=== PATIENT | female | born 1960 | race American Indian/Alaskan Native ===

== ENCOUNTER 2017-01-01 08:11 | Inpatient (IN) | payer OTHER ==
[2017-01-01] MEDS ORDERED: NACL BACTERIOSTATIC INFILTRATI ONE (09:01)
--- NOTE | 2017-01-01 09:05 | Anesthesia Consultation ---
Anesthesia Consult and Med Hx Date of service: 01/01/17 (Scheduled for Right breast bx w/ needle loc with Dr. Durant) - Airway Anesthetic Teeth Evaluation: Good ROM Head & Neck: Adequate Mental/Hyoid Distance: Adequate Mallampati Class: Class II Intubation Access Assessment: Probably Good - Pulmonary Exam CTA: Yes - Cardiac Exam Cardiac Exam: RRR - Pre-Operative Health Status ASA Pre-Surgery Classification: ASA3 Proposed Anesthetic Plan: General - Pre-Anesthesia Comment Pre-Anesthesia Comments: No previous anesthesia complicatons. NPO since midnight. Pt took Coreg and Amlodopine this am. Cardiac clearance on chart. - Pulmonary Hx Smoking: No Hx Asthma: Yes Hx Sleep Apnea: No - Cardiovascular System Hx Hypertension: Yes (FOR 6 YRS, DR. BLAYNE SHAW - PCP) Hx Coronary Artery Disease: No Hx Heart Attack/AMI: No - Central Nervous System Hx Seizures: Yes (LAST ONE 3 YRS AGO) CVA: No - Gastrointestinal Hx Gastroesophageal Reflux Disease: No - Endocrine Hx Renal Disease: No Hx End Stage Renal Disease: No Hx Non-Insulin Dependent Diabetes: Yes (off Metformin x 2 months) - Hematic Hx Anemia: Yes (30 YRS AGO AFTER CHILDBIRTH) - Other Systems Hx Cancer: No Hx Obesity: Yes (BMI= 34.9) - Additional Comments Anesthesia Medical History Comments: Cardiac clearance and medical clearance on chart. MPI 10/02/16- EF 62%, no ischemia or WMA. Echo 10/02/16: EF 60-655, nml valves
[2017-01-01] MEDS ORDERED: XYLOCAINE 1% 20 mL ONE (09:55)
[2017-01-01] MEDS ORDERED: NACL 0.9% 1000 ML 1,000 ML IV SCH (10:00)
[2017-01-01] MEDS ORDERED: PEPCID PO NR (10:00)
[2017-01-01] MEDS ORDERED: VERSED IV NR (10:00)
--- NOTE | 2017-01-01 10:56 | Procedure Note ---
Date of procedure: 01/01/17 Pre-op diagnosis: rt. breast lesion Post-op diagnosis: same Procedure: rt. breast needle loc. Findings: n/a Anesthesia: GETA, local Surgeon: DARRYN PEARCE Estimated blood loss: none Pathology: none Condition: stable (surgery)
[2017-01-01] MEDS ORDERED: DIPRIVAN 10 MG/ML IV ONE (10:57)
[2017-01-01] MEDS ORDERED: DILAUDID ONE (10:58)
[2017-01-01] MEDS ORDERED: VANCOMYCIN/NS 1 GM/250 ML 1 GM/250 ML BAG IV NR (11:00)
--- NOTE | 2017-01-01 11:26 | Mammography Report ---
Right breast needle localization: Mammographic grid technique was utilized. A grouping of microcalcifications identified in the superior breast. A medial approach was utilized. The skin was cleansed and 1% lidocaine injected for local anesthesia. A 5 cm Kruger needle was introduced from the medial side. Positioning was confirmed with myelography. A wire was then introduced with removal of the needle and additional mammographic confirmation of position. No complications encountered.
[2017-01-01] MEDS ORDERED: BREVIBLOC IV ONE (11:31)
[2017-01-01] MEDS ORDERED: ZOFRAN ONE (11:31)
[2017-01-01] MEDS ORDERED: DECADRON ONE (11:31)
[2017-01-01] MEDS ORDERED: VERSED ONE (11:33)
[2017-01-01] MEDS ORDERED: DILAUDID IV ONE (13:00)
--- NOTE | 2017-01-01 13:07 | Anesthesia Day of Surgery ---
Anesthesia Day of Surgery - Day of Surgery Patient Examined: Yes Patient H&P Reviewed: Yes Patient is NPO: Yes Beta Blockers: Yes
[2017-01-01] MEDS ORDERED: MARCAINE 0.25% INFILTRATI ONE (13:35)
[2017-01-01] MEDS ORDERED: WATER FOR IRRIG STERILE IR ONE (13:35)
[2017-01-01] MEDS ORDERED: XYLOCAINE 1% 20 mL INFILTRATI ONE (13:35)
--- NOTE | 2017-01-01 14:24 | Mammography Report ---
Operative specimen mammogram: A single tissue specimen is submitted that includes the localizing wire and the targeted microcalcifications.
--- NOTE | 2017-01-01 14:41 | Short Stay Summary ---
Short Stay Documentation Date of service: 01/01/17 - History H&P: obtained from office - Allergies and Medications Current Medications: Allergies Penicillins Allergy (Verified 08/16/13 22:14) Anaphylaxis Sulfa (Sulfonamide Antibiotics) Allergy (Verified 08/16/13 22:14) Rash Home Medications Medication Instructions Recorded Confirmed Last Taken Type Bupropion HCl [Wellbutrin XL] 450 mg PO QAM 12/27/16 01/01/17 01/01/17 06:45 History Carvedilol [Coreg] 6.25 mg PO BID 12/27/16 01/01/17 01/01/17 06:45 History Quetiapine Fumarate [SEROquel XR] 150 mg PO QHS 12/27/16 12/27/16 12/31/16 History Spironolactone [Aldactone] 100 mg PO QDAY 12/27/16 01/01/17 12/30/16 History Valacyclovir HCl [Valtrex] 1,000 mg PO QDAY PRN 12/27/16 01/01/17 1 Year Ago History amLODIPine [Norvasc] 10 mg PO DAILY 12/27/16 01/01/17 12/30/16 History lamoTRIgine [LaMICtal] 100 mg PO BID 12/27/16 12/27/16 12/31/16 History HYDROcodone/APAP 5-325 [Artemas 1 each PO Q6HR PRN #30 tablet 01/01/17 Unknown Rx 5/325] Active Medications Famotidine (Pepcid) 20 mg PO PREOP NR Stop: 01/01/17 23:59 Last Admin: 01/01/17 09:46 Dose: 20 mg Sodium Chloride (Nacl 0.9% 1000 Ml) 1,000 mls @ 75 mls/hr IV DIRECT SEAMUS Last Admin: 01/01/17 11:22 Dose: 75 mls/hr Vancomycin HCl (Vancomycin/Ns 1 Gm/250 Ml) 1 gm in 250 mls @ 167.007 mls/hr IV PREOP NR PRN Reason: Protocol Stop: 01/01/17 23:59 Last Admin: 01/01/17 11:25 Dose: 167.007 mls/hr Midazolam HCl (Versed) 2 mg IV PREOP NR Stop: 01/01/17 23:59 Last Admin: 01/01/17 11:23 Dose: 2 mg - Brief post op/procedure progress note Date of procedure: 01/01/17 Pre-op diagnosis: Right breast suspicious microcalcifications of the upper inner quadrant Post-op diagnosis: same Procedure: Right needle localization excisional biopsy of suspicious microcalcifications Anesthesia: GETA Findings: Wire and suspicious microcalcifications present within radiograph specimen Surgeon: PIPO SANCHES Estimated blood loss: minimal Pathology: list (right needle localization excisional biopsy) Specimen disposition: to lab Condition: stable - Disposition Condition at discharge: Good Disposition: DISCHARGED TO HOME OR SELFCARE Short Stay Discharge Plan Activity: other (no heavy lifting) Diet: low fat Wound: other (keep incision clean and dry and may shower in 24 hours; no baths, pools or lakes; do not rub or scrub incision) Follow up with: BLAYNE SHAW MD [Primary Care Provider] - 7 Days PIPO SANCHES MD [Staff Physician] - 7 Days Prescriptions: HYDROcodone/APAP 5-325 [Artemas 5/325] 1 each PO Q6HR PRN #30 tablet PRN Reason: Pain
--- NOTE | 2017-01-01 14:50 | Operative Report ---
Operative Report Operative Report: Date of procedure:January 01, 2017 Pre-operative diagnosis: Right breast suspicious microcalcifications of the upper inner quadrant Post-operative diagnosis: Same Procedure name(s): Right needle localization excisional biopsy Surgeon: Jaycee Durant MD Anesthesia: General Findings: Wire with suspicious microcalcifications present within radiograph specimen Drains: None Complications: None Disposition: PACU in good position Indications for operative procedure: This is a 56 year old lady with suspicious right breast microcalcifications of the upper inner breast not amenable to stereotactic breast biopsy. Recommendations are to proceed with needle localization excisional biopsy to rule out malignancy. Procedure in Detail: Radiology placed wire to localize the suspicious microcalcifications of concern for the upper inner right breast. Patient was taken to the operating room and was laid supine. Gen. anesthesia was administered. The right breast was prepped and draped in the normal sterile operative fashion. The wire was identified. A skin incision was made with a 15 blade knife with dissection taken down to the subcutaneous tissues. First began with raising of the superior flap with removal of the wire from the skin with dissection taken down posterior to the pectoralis muscle followed by raising of the medial flap, inferior flap and then the lateral flap. The specimen was then removed from the pectoralis muscle with the aid of the Bovie cautery. Wire was not encountered and specimen was marked. Radiograph specimen with wire and suspicious microcalcifications present. Hemostasis was then obtained with the Bovie cautery. The subcutaneous tissues were approximated and closed using interrupted 3-0 Vicryl and skin closed with running 4-0 Monocryl and skin affix. She tolerated surgery very well and was awakened from anesthesia without any complications and transferred to PACU in good condition.
--- NOTE | 2017-01-01 15:07 | Post Anesthesia Evaluation ---
- Post Anesthesia Evaluation Patient Participated: Yes Airway Patent: Yes Stable Respiratory Function: Yes Nausea/Vomiting: No Temp > 96.8F: Yes Pain Manageable: Yes Adequeate Hydration: Yes Anesthesia Complications: No Block Receding Appropriately: Not Applicable Patient on Ventilator: No
[2017-01-01] MEDS ORDERED: ZOFRAN IV PRN ×2 (15:08→19:08)
[2017-01-01] MEDS: DILAUDID IV PRN ×2 (15:20→15:55)
[2017-01-01] MEDS: MORPHINE IV PRN ×3 (16:10→19:54)
[2017-01-01] MEDS ORDERED: NORCO 5/325 PO PRN (17:11)
[2017-01-01] MEDS ORDERED: VERSED IV ONE (17:53)
--- NOTE | 2017-01-01 18:39 | Progress Note ---
Subjective Date of service: 01/01/17 Principal diagnosis: chest pain Interval history: Patient s/p right breast biopsy complaining of chest pain on left that is sharp , constant. Also having bilateral jaw pain. EKG obtained which showed NSR with nonspecific T wave abnormality. Cardiac enzymes, BMP, CBC also ordered and pending. Patient reports having chest pain for the last few months that comes and goes. She has seen [facility] and had a stress test in September 2016 which was negative. She reports that the shipping lead did not tell her why she was having chest pain. Chest pain today is similar to what she has been having. Discussed with Dr. Durant and she would like the patient to be admitted. Dr. Jaquez called to admit the patient. Objective - Constitutional Vitals: Vital Signs - 12hr 01/01/17 01/01/17 01/01/17 08:45 09:04 14:40 Temperature 98.2 F 98.2 F 97.1 F L Pulse Rate 69 64 63 Respiratory 18 18 20 Rate Blood Pressure 137/88 137/88 143/88 O2 Sat by Pulse 99 99 99 Oximetry 01/01/17 01/01/17 01/01/17 14:45 14:50 14:55 Temperature Pulse Rate 73 67 67 Respiratory 18 16 16 Rate Blood Pressure 156/97 148/84 153/73 O2 Sat by Pulse 100 100 100 Oximetry 01/01/17 01/01/17 01/01/17 15:00 15:15 15:20 Temperature Pulse Rate 59 L 60 Respiratory 16 16 16 Rate Blood Pressure 149/84 144/82 O2 Sat by Pulse 100 100 Oximetry 01/01/17 01/01/17 01/01/17 15:30 15:45 16:00 Temperature 98.4 F Pulse Rate 77 68 66 Respiratory 12 14 14 Rate Blood Pressure 141/89 147/83 149/89 O2 Sat by Pulse 99 99 99 Oximetry 01/01/17 01/01/17 01/01/17 16:10 16:30 16:40 Temperature Pulse Rate 67 Respiratory 14 14 16 Rate Blood Pressure 139/74 O2 Sat by Pulse 99 Oximetry 01/01/17 01/01/17 17:13 17:43 Temperature Pulse Rate Respiratory 16 16 Rate Blood Pressure O2 Sat by Pulse Oximetry
[2017-01-01 19:01] LABS: Basophils % (Auto) 0.3 % (0.0-1.8); Eosinophils % (Auto) 0.1 % (0.0-4.3); Hemoglobin 13.1 gm/dl (10.1-14.3); Mean Corpuscular HGB Conc 33 % (30-34); Mean Corpuscular Hemoglobin 30 pg (28-32); Mean Corpuscular Volume 90 fl (79-97); Platelet Count 236 K/mm3 (140-440); Red Blood Count 4.43 M/mm3 (3.65-5.03); Red Cell Distribution Width 14.6 % (13.2-15.2); White Blood Count 7.8 K/mm3 (4.5-11.0)
[2017-01-01 19:02] LABS: Creatine Kinase 118 units/L (30-135)
[2017-01-01 19:04] LABS: Creatine Kinase MB < 1.0 ng/mL (0.0-4.0)
[2017-01-01 19:08] LABS: Anion Gap 20 mmol/L; Blood Urea Nitrogen 10 mg/dL (7-17); Calcium 8.8 mg/dL (8.4-10.2); Carbon Dioxide 25 mmol/L (22-30); Chloride 104.1 mmol/L (98-107); Glucose 128 mg/dL (65-100); Potassium 4.6 mmol/L (3.6-5.0); Sodium 144 mmol/L (137-145)
[2017-01-01] MEDS ORDERED: TYLENOL PO PRN (19:08)
[2017-01-01] MEDS ORDERED: DILAUDID IV PRN (19:08)
[2017-01-01] MEDS ORDERED: MILK OF MAGNESIA PO PRN (19:08)
[2017-01-01] MEDS ORDERED: DULCOLAX PR PRN (19:08)
[2017-01-01] MEDS ORDERED: SODIUM CHLORIDE FLUSH SYRINGE 10 ML IV PRN (19:11)
[2017-01-01] MEDS ORDERED: D5NS 1,000 ML IV SCH (20:00)
[2017-01-01 23:11] LABS: Basophils % (Auto) 0.2 % (0.0-1.8); Hematocrit 39.7 % (30.3-42.9); Hemoglobin 12.5 gm/dl (10.1-14.3); Mean Corpuscular HGB Conc 32 % (30-34); Mean Corpuscular Hemoglobin 29 pg (28-32); Mean Corpuscular Volume 92 fl (79-97); Platelet Count 253 K/mm3 (140-440); Red Blood Count 4.32 M/mm3 (3.65-5.03); Red Cell Distribution Width 14.6 % (13.2-15.2); White Blood Count 9.1 K/mm3 (4.5-11.0)
[2017-01-01 23:23] LABS: Creatine Kinase 122 units/L (30-135)
[2017-01-01 23:28] LABS: Creatine Kinase MB < 1.0 ng/mL (0.0-4.0)
[2017-01-02] MEDS: MORPHINE IV PRN (00:27)
--- NOTE | 2017-01-02 01:35 | Admit Criteria Form ---
Admission Criteria Documentation: AMBULATORY SURGERY EXCEPTION CRITERIA Ambulatory Surgery Exception Criteria ( Place 'X' for any and all applicable criteria): Surgery or procedure performed on ambulatory basis may require inpatient stay for[A] ANY ONE of the following(1)(2)(3)(4)(5)(6)(7)(8)(9): [X] I. A preoperative situation, condition, or finding that warrants inpatient stay as indicated by ANY ONE of the following: [] a) Inpatient care needed because of severity of a disease or condition rather than the surgery (eg, severe cardiac or respiratory disease, severe infection) (15) (16 ) (17) (18) [] b) Emergent procedure (eg, angioplasty for acute ischemia)(19) [] c) Complex surgical approach or situation as indicated by ANY ONE of the following(3): [] i) Open approach needed instead of usual endoscopic, transcatheter, or other less invasive procedure [] ii) Difficult approach because of previous operation [] iii) Airway monitoring required after open neck procedures(20)(21) [] iv) Large mass requiring unusually extensive dissection [] v) Additional complicating feature requiring inpatient care (eg, drain management)(22(23): [X] d) Major surgery in a pt with high anesthetic risk as indicated by ANY ONE of the following (2)(3)(5)(7)(8): [X] i) ASA risk class III or higher (severe systemic disease impairing function) [D] [] ii) Advanced age (eg, older than 85 years)(14)(24) [] iii) Symptomatic heart failure(25) [] iv) Symptomatic asthma or COPD(8)(21) [] v) Morbid obesity with hemodynamic or respiratory problems(20)( 21)(26)(27) [] vi) Obstructive sleep apnea(20)(21) [] vii) Former premature infants who are younger than 60 weeks [] viii) High risk for severe postoperative abnormalities (eg, severe postoperative hypocalcemia after parathyroidectomy for severe hyperparathyroidism)(27)( 28) [] ix) Unstable angina(25) [] e) Drug-related risk requiring inpatient stay as indicated by ANY ONE of the following(5)(10)(14)(32)(33) [] i) Procedure requires discontinuing drugs or other therapy (eg , antiarrhythmic medication, antiseizure medication), which necessitates inpatient observation or treatment.(18)(31) [] ii) Major surgery and high risk drug use as indicated by ANY ONE of the following: [] 1) Active abuse of cocaine or similar drug [] 2) Monoamine oxidase inhibitor use [] 3) Other drug identified as posing risk [] f) Inadequate outpatient care situation as indicated by ANY ONE of the following(5)(10)(14)(32)(33) [] i) Patient lives remote from medical facility and procedure has urgent complication potential, and temporary nearby residence cannot be arranged [] ii) Patient will have postprocedure incapacitation and inadequate assistance at home, or alternative level of care cannot be arranged. [] iii) Patient will have long general anesthesia or procedure side effect resolution time, and competent person to stay with patient on first postoperative night at home or alternative level of care cannot be arranged. []iv) Other inadequate outpatient situation that cannot be handled by other means [] II. A perioperative event, condition, or finding that warrants inpatient stay as indicated by ANY ONE of the following (1)(2)(3): [] a) Inadequate physiologic recovery: cardiovascular, respiratory, or hemodynamic status not normal or near preoperative baseline(18) [] b) Hemodynamic instability [] c) Patient not alert with near normal or baseline mental status [] d) Temperature not normal or as expected and not appropriate for outpatient treatment of condition [] e) Ambulatory or appropriate activity level status not yet achieved post procedure [E](34)(35)(36) [] f) Operative site not appropriate (eg, unexpected or excessive drainage or bleeding) [] g) Postoperative effects not resolved or adequately managed (eg, significant pain or vomiting not appropriate for outpatient or next level of care)(10)(12) [] h) Complicating features requiring inpatient care as indicated by ANY ONE of the following(37): [] i) Severe complications of procedure (eg, bowel injury, airway compromise, vascular injury,severe hemorrhage) [] ii) Extensive (eg, dissection far beyond usual scope of procedure ) or prolonged (eg, 120 minutes beyond usual) surgery needed requiring inpatient postoperative care [] iii) Conversion to an open or complex procedure that requires inpatient care (eg, open vs laparoscopic cholecystectomy, abdominal vs vaginal hysterectomy)(38) [] iv) Comorbid condition or test result identified during or post procedure that requires inpatient care (7) [] v) Malignant hyperthermia(30) [] vi) Other complicating feature requiring inpatient care(22)(23) Inpatient stay may be needed until ALL of the following are present (1)(2)(3)(4) (5)(6)(10)(14)(33)(40): []a) Physiologic recovery: cardiovascular, respiratory, and hemodynamic status normal or near preoperative baseline []b) Hemodynamic stability []c) Patient alert, with near normal or baseline mental status []d) Temperature appropriate: patient afebrile or temperature appropriate for outpt treatment of condition []e) Activity level appropriate: ambulatory or appropriate activity level post procedure []f) Operative site appropriate as indicated by ALL of the following: []i) Site dry or with expected drainage []ii) Any blood noted is as expected for procedure. []g) Postoperative effects resolved or managed as indicated by ALL of the following: []i) Pain management appropriate for outpatient (or next level of) care(10) []ii) Minimal nausea and vomiting: if present, successfully treated with oral medication(12) []iii) Headache, dizziness, or drowsiness (if present) are mild. []h) Voiding status acceptable as indicated by ANY ONE of the following: []i) Voiding spontaneously []ii) No voiding but instructions given for follow-up in 6 to 8 hours []iii) Urinary catheter in place, and instructions given for follow-up []i) Complicating features requiring inpatient care manageable at a lower level of care(37) []j) Comorbid conditions manageable at a lower level of care(37) The original [employer] content created by [employer] has been revised. The portions of the content which have been revised are identified through the use of italic text or in bold, and [employer] [employer] has neither reviewed nor approved the modified material. All other unmodified content is copyright [employer]. Please see references footnoted in the original [employer] edition 2016 Admission Criteria Met: Yes
[2017-01-02 06:14] LABS: Basophils % (Auto) 0.4 % (0.0-1.8); Hematocrit 36.5 % (30.3-42.9); Hemoglobin 11.8 gm/dl (10.1-14.3); Mean Corpuscular HGB Conc 32 % (30-34); Mean Corpuscular Hemoglobin 30 pg (28-32); Mean Corpuscular Volume 92 fl (79-97); Platelet Count 235 K/mm3 (140-440); Red Blood Count 3.96 M/mm3 (3.65-5.03); Red Cell Distribution Width 14.7 % (13.2-15.2); White Blood Count 11.9 K/mm3 (4.5-11.0)
[2017-01-02 06:39] LABS: Alanine Aminotransferase 20 units/L (7-56); Albumin 3.7 g/dL (3.9-5); Albumin/Globulin Ratio 1.3 %; Alkaline Phosphatase 63 units/L (35-129); Anion Gap 19 mmol/L; Bilirubin,Total 0.2 mg/dL (0.1-1.2); Blood Urea Nitrogen 8 mg/dL (7-17); Calcium 8.3 mg/dL (8.4-10.2); Carbon Dioxide 20 mmol/L (22-30); Chloride 104.5 mmol/L (98-107); Glucose 142 mg/dL (65-100); Potassium 3.9 mmol/L (3.6-5.0); Sodium 140 mmol/L (137-145); Total Protein 6.5 g/dL (6.3-8.2)
[2017-01-02 06:41] LABS: Creatine Kinase 116 units/L (30-135)
[2017-01-02 06:46] LABS: Creatine Kinase MB < 1.0 ng/mL (0.0-4.0)
--- NOTE | 2017-01-02 06:57 | Event Note ---
Date: 01/01/17 See H/p in reports Chest pain-post op HTN
--- NOTE | 2017-01-02 08:48 | Progress Note ---
Assessment and Plan This is a 56 year old lady with an abnormal right mammogram POD#1 for right needle localization excisional biopsy of suspicious microcalcifications not amenable to stereotactic biopsy. Patient admitted after surgery for chest pain. 2 sets of cardiac enzymes negative. 1. Patient with mild complaints of chest pain this morning, all cardiac work-up negative and patient had stress test in September with negative findings. 2. Right breast incision healing nicely and pt with f/u next . 3. Mgt by Dr. Jaquez and kimberly el. Subjective Date of service: 01/02/17 Principal diagnosis: chest pain Interval history: This is a 56 year old lady with an abnormal right mammogram POD#1 for right needle localization excisional biopsy of suspicious microcalcifications not amenable to stereotactic biopsy. Patient admitted after surgery for chest pain. 2 sets of cardiac enzymes negative. Objective - Constitutional Vitals: Vital Signs - 12hr 01/01/17 01/02/17 01/02/17 22:14 00:40 06:00 Temperature 97.7 F 98.1 F 98.0 F Pulse Rate [ 71 85 73 Left Radial] Respiratory 20 20 20 Rate Blood Pressure 120/74 124/68 118/69 [Left Arm] O2 Sat by Pulse 96 97 95 Oximetry General appearance: Present: no acute distress - EENT Eyes: PERRL, EOM intact ENT: hearing intact, clear oral mucosa, dentition normal Ears: bilateral: normal - Neck Neck: supple, normal ROM - Respiratory Respiratory effort: normal Respiratory: bilateral: CTA - Breasts Breasts: other (right breast incision healing nicely, no fluid collection) - Cardiovascular Rhythm: regular Heart Sounds: Present: gallop Extremities: no ischemia, pulses intact, pulses symmetrical, No edema, normal temperature, normal color - Gastrointestinal General gastrointestinal: Present: soft, non-tender, non-distended Rectal Exam: deferred - Genitourinary Female genitourinary: deferred - Integumentary Integumentary: clear, warm, dry - Musculoskeletal Musculoskeletal: strength equal bilaterally - Neurologic Neurologic: CNII-XII intact - Psychiatric Psychiatric: appropriate mood/affect, intact judgment & insight, memory intact, cooperative - Labs CBC & Chem 7: 01/02/17 05:56 01/02/17 05:56 Labs: Abnormal lab results 01/01/17 01/01/17 01/01/17 Range/Units 18:30 18:30 18:47 WBC (4.5-11.0) K/mm3 Seg Neutrophils % 79.0 H (40.0-70.0) % Seg Neutrophils # (1.8-7.7) K/mm3 Carbon Dioxide (22-30) mmol/L Glucose 128 H (65-100) mg/dL POC Glucose 124 H (70-105) Calcium (8.4-10.2) mg/dL Albumin (3.9-5) g/dL 01/01/17 01/02/17 01/02/17 Range/Units 22:45 05:56 05:56 WBC 11.9 H (4.5-11.0) K/mm3 Seg Neutrophils % 83.2 H 80.2 H (40.0-70.0) % Seg Neutrophils # 9.5 H (1.8-7.7) K/mm3 Carbon Dioxide 20 L (22-30) mmol/L Glucose 142 H (65-100) mg/dL POC Glucose (70-105) Calcium 8.3 L (8.4-10.2) mg/dL Albumin 3.7 L (3.9-5) g/dL
--- NOTE | 2017-01-02 09:49 | History and Physical Report ---
CHIEF COMPLAINT: Left-sided chest pain after the surgery. HISTORY OF PRESENT ILLNESS: A 56-year-old status post right breast biopsy of microcalcification in the right breast along with the ____ of radiology. Complains of left-sided chest pain after the surgery. The patient was impacted and continued to have chest pain. Hence, the patient is being admitted postop complication admission. The patient has been having chest pain off and on for the last few months, had a stress test in September 2016 which was negative. She had left-sided chest pain, dull and 6/10. No shortness of breath. No palpitations. No diaphoresis. The patient is being admitted for a 23-hour observation and repeat stress test from PACU. PAST MEDICAL HISTORY: Significant for hypertension, psychiatric disorder, and depression. PAST SURGICAL HISTORY: Right breast biopsy today. SOCIAL HISTORY: Does not smoke. No alcohol. No recreational drugs. CURRENT MEDICATIONS: Amlodipine 10 mg daily, Wellbutrin 450 mg in the morning, Coreg 6.25 b.i.d., Lamictal 100 mg twice a day, Seroquel 150 mg p.o. at bedtime, and spironolactone 100 mg p.o. daily. REVIEW OF SYSTEMS: Significant for left-sided chest pain. Otherwise, review of systems negative. A 14-point review of systems was done. PHYSICAL EXAMINATION: GENERAL: Middle-aged female, cooperative on examination. VITAL SIGNS: Temperature is 98.2, pulse is 68, respirations 15, chest sats are 99%, and blood pressure is 124/78. HEENT: Unremarkable. Pupils equal and reactive. NECK: Supple. No lymphadenopathy. No thyromegaly. LUNGS: Clear to auscultation and percussion. Good air entry. CARDIOVASCULAR: S1 and S2 heard. No gallop. No murmur. No rub. Apical impulse in the left fifth intercostal space and midclavicular line. ABDOMEN: Soft and benign. No hepatosplenomegaly. No guarding. No rigidity. Hernial orifices are normal. EXTREMITIES: Good pedal pulses. No pedal edema. DIAGNOSTIC DATA: EKG shows normal sinus rhythm. Heart rate of [address] minute[address] No acute ST-T wave changes. LABORATORY DATA: White count is 7800, hemoglobin 13.1, hematocrit is 40.0, and platelet count is 236,000. Electrolytes are normal. Glucose is slightly high 128. Troponin is 0.010, CK is 118, and CK-MB is less than 1.0. ASSESSMENT AND PLAN: 1. Chest pain, rule out myocardial infarction, chest pain protocol. Serial cardiac enzymes and Lexiscan ordered. 2. Hypertension. Continue antihypertensives in the form of Coreg 6.25 b.i.d., amlodipine 10 mg daily, and spironolactone 100 mg daily. 3. Depression. Continue Wellbutrin 450 mg p.o. daily. 4. Psychiatric disorder. Continue quetiapine 150 mg p.o. at bedtime, Lamictal 100 mg twice a day. 5. Deep venous thrombosis prophylaxis. Lovenox 40 mg subcutaneous daily. Status post right breast excisional biopsy. Dr. Durant to follow. JOB# [id number] MARNIE/TERESITA
[2017-01-02] MEDS ORDERED: ALDACTONE PO SCH ×2 (10:00)
[2017-01-02] MEDS ORDERED: NORVASC PO SCH (10:00)
[2017-01-02] MEDS ORDERED: WELLBUTRIN XL PO SCH (10:00)
[2017-01-02] MEDS ORDERED: BUPROPION HCL 450 MG PO SCH ×3 (10:00)
[2017-01-02] MEDS ORDERED: NON-FORMULARY (Spironolactone [Aldactone] 100 MG) PO SCH (10:00)
[2017-01-02] MEDS: COREG PO SCH ×2 (10:18→22:54)
[2017-01-02] MEDS: LaMICtal PO SCH ×2 (10:18→22:53)
--- NOTE | 2017-01-02 16:21 | Discharge Summary ---
Providers - Providers Date of Admission: 01/01/17 19:08 Date of discharge: 01/03/17 Attending physician: PIPO SANCHES 01/01/17 Consult to Cardiac Rehabilitation [CONS] Routine Reason For Exam: Phase I 01/01/17 19:08 Consult to Physician [CONS] Routine Consulting Provider: PIPO SANCHES Reason For Exam: Breast surgery Place consult to:: DR. SANCHES Notified:: ATTENDING Primary care physician: BLAYNE SHAW Hospitalization Condition: Good Hospital course: This is a 56 year old lady with an abnormal right mammogram for right needle localization excisional biopsy of suspicious microcalcifications not amenable to stereotactic biopsy. Patient admitted after surgery for chest pain. She has monitored with serial cardiac enzyme and 4 sets of cardiac enzymes were negative. She was ordered for a thallium stress test but she had a negative stress test back on September. A d-dimer level was ordered and results revealed normal value. Patient then started to complain of left upper extremity swelling and continued to have chest pain. She was further evaluated with left humerus x-ray which was unremarkable and the left upper extremity Doppler for possible upper extremity DVT but that was negative too. Her chest pain resolved this morning and she states that her left upper extremity swelling also resolved . She was evaluated by cardiology standpoint to her intervention recommended. She couldn't get the CT of the chest as proper vein was not detected during the test for contrast . Taste was counseled that her own as her chest pain resolved. Her chest pain most likely due to GERD, she was discharged home with a trial of PPI and she will follow up with her primary care physician in a week. Discharge diagnosis: 1. Chest pain, atypical Patient with mild complaints of chest pain this morning, all cardiac work-up negative and patient had stress test in September with negative findings. D-dimer is negative d/c home with PPI 2. Right breast incision healing nicely and pt to f/u next with PIPO Love. 3. Hypertension, benign essential continue on Coreg, amlodipine and aldectone 4. History of bipolar disorder continue home meds Disposition: DISCHARGED TO HOME OR SELFCARE Time spent for discharge: 32 minutes Core Measure Documentation - Palliative Care Palliative Care/ Comfort Measures: Not Applicable - Core Measures Any of the following diagnoses?: none Exam - Physical Exam Narrative exam: GENERAL: Obese -[place] female lying on bed appeared to be in no discomfort. HEENT: Normocephalic. Atraumatic. No conjunctival congestion or icterus. Patient has moist mucous membranes. NECK: Supple. Trachea midline. CHEST/LUNGS: Clear to auscultated bilaterally, breathing nonlabored. No wheezes crackles or rhonchi. HEART/CARDIOVASCULAR: Regular in rate and rhythm. S1 and S2 positive. ABDOMEN: Abdomen is soft, nontender. Patient has normal bowel sounds. SKIN: There is no rash. Warm and dry. NEURO: No focal motor deficit. Follows command. MUSCULOSKELETAL: No joint effusion or tenderness. EXTRIMITY: No edema, no cyanosis or clubbing. PSYCH: Cooperative. - Constitutional Vitals: Temp Pulse Resp BP Pulse Ox 97.7 F 66 18 112/67 95 01/02/17 08:00 01/02/17 08:00 01/02/17 08:00 01/02/17 08:00 01/02/17 08:56 Plan Activity: no restrictions Weight Bearing Status: Weight Bear as Tolerated Diet: low cholesterol, low salt Wound: keep clean and dry Follow up with: BLAYNE SHAW MD [Primary Care Provider] - 7 Days PIPO SANCHES MD [Staff Physician] - 7 Days Prescriptions: HYDROcodone/APAP 5-325 [[place] 5/325] 1 each PO Q6HR PRN #30 tablet PRN Reason: Pain Pantoprazole [Protonix TAB] 40 mg PO QDAY 30 Days
--- NOTE | 2017-01-02 16:35 | Progress Note ---
Assessment and Plan Assessment and plan: 1. Chest pain, atypical Patient with mild complaints of chest pain this morning, all cardiac work-up negative and patient had stress test in September with negative findings. D-dimer is negative Patient now complains of chest pain with left upper extremity swelling She refuses to go home today We'll consult cardiology for further evaluation of her chest pain Will also get upper extremity venous Doppler and left shoulder x-ray I strongly doubt that patient had aortic dissection given the blood pressure is so normal But we will get CTA as patient continued to complain of precordial chest pain 2. Right breast incision healing nicely and pt to f/u next with PIPO Love. 3. Hypertension, benign essential continue on Coreg 4. History of bipolar disorder We'll resume home meds History Interval history: Patient seen and examined. Medical records and medication list reviewed. No acute event overnight noted by the RN. Patient continued to complain of chest pain and left upper extremity swelling. Patient is tolerating diet. Discussed plan of care at bedside with patient. Hospitalist Physical - Physical exam Narrative exam: GENERAL: Obese -[place] female lying on bed appeared to be in no discomfort. HEENT: Normocephalic. Atraumatic. No conjunctival congestion or icterus. Patient has moist mucous membranes. NECK: Supple. Trachea midline. CHEST/LUNGS: Clear to auscultated bilaterally, breathing nonlabored. No wheezes crackles or rhonchi. HEART/CARDIOVASCULAR: Regular in rate and rhythm. S1 and S2 positive. ABDOMEN: Abdomen is soft, nontender. Patient has normal bowel sounds. SKIN: There is no rash. Warm and dry. NEURO: No focal motor deficit. Follows command. MUSCULOSKELETAL: No joint effusion or tenderness. EXTRIMITY: No edema, no cyanosis or clubbing. PSYCH: Cooperative. - Constitutional Vitals: Temp Pulse Resp BP Pulse Ox 97.7 F 66 18 112/67 95 01/02/17 08:00 01/02/17 08:00 01/02/17 08:00 01/02/17 08:00 01/02/17 08:56 General appearance: Present: no acute distress Results - Labs CBC & Chem 7: 01/02/17 05:56 01/02/17 05:56 Labs: Laboratory Last Values WBC 11.9 K/mm3 (4.5-11.0) H 01/02/17 05:56 RBC 3.96 M/mm3 (3.65-5.03) 01/02/17 05:56 Hgb 11.8 gm/dl (10.1-14.3) 01/02/17 05:56 Hct 36.5 % (30.3-42.9) 01/02/17 05:56 MCV 92 fl (79-97) 01/02/17 05:56 MCH 30 pg (28-32) 01/02/17 05:56 MCHC 32 % (30-34) 01/02/17 05:56 RDW 14.7 % (13.2-15.2) 01/02/17 05:56 Plt Count 235 K/mm3 (140-440) 01/02/17 05:56 Lymph % (Auto) 13.6 % (13.4-35.0) 01/02/17 05:56 [place] % (Auto) 5.8 % (0.0-7.3) 01/02/17 05:56 Eos % (Auto) 0.0 % (0.0-4.3) 01/02/17 05:56 Baso % (Auto) 0.4 % (0.0-1.8) 01/02/17 05:56 Lymph # 1.6 K/mm3 (1.2-5.4) 01/02/17 05:56 [place] # 0.7 K/mm3 (0.0-0.8) 01/02/17 05:56 Eos # 0.0 K/mm3 (0.0-0.4) 01/02/17 05:56 Baso # 0.1 K/mm3 (0.0-0.1) 01/02/17 05:56 Seg Neutrophils % 80.2 % (40.0-70.0) H 01/02/17 05:56 Seg Neutrophils # 9.5 K/mm3 (1.8-7.7) H 01/02/17 05:56 D-Dimer < 135.0 ng/mlDDU (0-234) 01/02/17 14:58 Sodium 140 mmol/L (137-145) 01/02/17 05:56 Potassium 3.9 mmol/L (3.6-5.0) 01/02/17 05:56 Chloride 104.1 mmol/L (98-107) 01/01/17 18:30 Carbon Dioxide 20 mmol/L (22-30) L 01/02/17 05:56 Anion Gap 20 mmol/L 01/01/17 18:30 BUN 8 mg/dL (7-17) 01/02/17 05:56 Creatinine 0.8 mg/dL (0.7-1.2) 01/02/17 05:56 Estimated GFR > 60 ml/min 01/02/17 05:56 BUN/Creatinine Ratio 10.00 % 01/02/17 05:56 Glucose 142 mg/dL (65-100) H 01/02/17 05:56 POC Glucose 124 (70-105) H 01/01/17 18:47 Calcium 8.3 mg/dL (8.4-10.2) L 01/02/17 05:56 Total Bilirubin 0.2 mg/dL (0.1-1.2) 01/02/17 05:56 AST 14 units/L (5-40) 01/02/17 05:56 ALT 20 units/L (7-56) 01/02/17 05:56 Alkaline Phosphatase 63 units/L (35-129) 01/02/17 05:56 Total Creatine Kinase 116 units/L (30-135) 01/02/17 05:56 CK-MB (CK-2) < 1.0 ng/mL (0.0-4.0) 01/02/17 05:56 CK-MB (CK-2) Rel Index 0.8 (0-4) 01/02/17 05:56 Troponin T < 0.010 ng/mL (0.00-0.029) 01/02/17 05:56 Total Protein 6.5 g/dL (6.3-8.2) 01/02/17 05:56 Albumin 3.7 g/dL (3.9-5) L 01/02/17 05:56 Albumin/Globulin Ratio 1.3 % 01/02/17 05:56
[2017-01-02] MEDS ORDERED: MOTRIN PO PRN (17:33)
[2017-01-02] MEDS ORDERED: PROTONIX PO SCH (18:00)
[2017-01-02] MEDS ORDERED: NON-FORMULARY (Quetiapine Fumarate [Seroquel Xr] 150 MG) PO SCH (22:00)
[2017-01-02 22:54] VITALS: BP 152/91
[2017-01-03] MEDS ORDERED: NACL ONE (06:58)
--- NOTE | 2017-01-03 08:38 | XRay Report ---
LEFT HUMERUS: AP and lateral views of the humerus demonstrate normal mineralization and contours for this patient's age. No destructive changes are noted and the adjacent soft tissues are normal. IMPRESSION: Normal left humerus.
--- NOTE | 2017-01-03 09:52 | Query- Chest Pain ---
Yair Tinsley____Diana Date: 01/03/17 Blood Collector/CDS:___Laci Quiroga Phone#:____[phone] Exercise your independent professional judgment when responding to query. Questions asked do not imply a particular answer is desired or expected. We greatly appreciate your clarification on this issue. Clinical Documentation States: 56 year old female was admitted on 01/01/17. The discharge summary states " Chest pain, atypical Patient with mild complaints of chest pain this morning, all cardiac work-up negative and patient had stress test in September with negative findings. D-dimer is negative d/c home with PPI " Please document the etiology of Chest Pain: [ ] Myocardial Infarction [ ] Pneumonia [ ] Mediastinitis [ ] Costochondritis [ ] Pulmonary Embolism [ ] Coronary Artery Disease [X ] GERD [ ] Other: [ ] Comment/Explanation: Present on Admission: [X ] Yes (Y) [ ] Clinically undeterminable (W) [ ] No(N) Please document response in your Progress Notes and/or Discharge Summary and indicate if the condition was present on admission. ZAID
--- NOTE | 2017-01-03 10:47 | Consultation ---
History of Present Illness Consult date: 01/03/17 Requesting physician: CHARAN LANG Consult reason: chest pain History of present illness: The patient is a 56 year old female with a history of hypertension, bipolar disorder who underwent biopsy of suspicious microcalcifications of her right breast on 01/01. Post operatively, she developed left sided chest pain. Pain lasted throughout the day yesterday but is currently resolved. No shortness of breath, palpitations, nausea, vomiting or diaphoresis. Troponin negative x 4. D- dimer negative. No acute EKG changes. Stress test done 09/2016 was negative for ischemia. Past History Past Medical History: hypertension, other (bipolar disorder) Past Surgical History: Other (s/p right breasty biopsy) Social history: full code. denies: smoking, alcohol abuse, prescription drug abuse, IV drug use Family history: no significant family history Medications and Allergies Allergies Allergy/AdvReac Type Severity Reaction Status Date / Time Penicillins Allergy Anaphylaxis Verified 08/16/13 22:14 Sulfa (Sulfonamide Allergy Rash Verified 08/16/13 22:14 Antibiotics) Home Medications Medication Instructions Recorded Confirmed Last Taken Type Bupropion HCl [Wellbutrin XL] 450 mg PO QAM 12/27/16 01/01/17 01/01/17 06:45 History Carvedilol [Coreg] 6.25 mg PO BID 12/27/16 01/01/17 01/01/17 06:45 History Quetiapine Fumarate [SEROquel XR] 150 mg PO QHS 12/27/16 12/27/16 12/31/16 History Spironolactone [Aldactone] 100 mg PO QDAY 12/27/16 01/01/17 12/30/16 History amLODIPine [Norvasc] 10 mg PO DAILY 12/27/16 01/01/17 12/30/16 History lamoTRIgine [LaMICtal] 100 mg PO BID 12/27/16 12/27/16 12/31/16 History HYDROcodone/APAP 5-325 [[place] 1 each PO Q6HR PRN #30 tablet 01/01/17 Unknown Rx 5/325] Active Meds: Active Medications Acetaminophen (Tylenol) 650 mg PO Q4H PRN PRN Reason: Pain MILD(1-3)/Fever >100.5/HUANG Acetaminophen/Hydrocodone Bitart ([place] 5/325) 1 each PO Q6H PRN PRN Reason: Pain, Moderate (4-6) Amlodipine Besylate (Norvasc) 10 mg PO DAILY [facility] Last Admin: 01/02/17 10:17 Dose: Not Given Bisacodyl (Dulcolax) 10 mg [place] QDAY PRN PRN Reason: Constipation unrelieved by MOM Last Admin: 01/02/17 00:28 Dose: 10 mg Bupropion HCl (Wellbutrin Xl) 450 mg PO QAM [facility] Last Admin: 01/02/17 10:17 Dose: Not Given Carvedilol (Coreg) 6.25 mg PO BID [facility] Last Admin: 01/02/17 22:54 Dose: Not Given Hydromorphone HCl (Dilaudid) 0.5 mg IV Q3H PRN PRN Reason: Pain , Severe (7-10) Last Admin: 01/02/17 10:00 Dose: 0.5 mg Sodium Chloride (Nacl 0.9% 1000 Ml) 1,000 mls @ 75 mls/hr IV DIRECT [facility] Last Admin: 01/01/17 11:22 Dose: 75 mls/hr Dextrose/Sodium Chloride (D5ns) 1,000 mls @ 75 mls/hr IV DIRECT [facility] Last Admin: 01/02/17 01:50 Dose: 75 mls/hr Ibuprofen (Motrin) 800 mg PO Q8H PRN PRN Reason: Pain, Mild (1-3) Last Admin: 01/02/17 20:15 Dose: 800 mg Lamotrigine (Lamictal) 100 mg PO BID [facility] Last Admin: 01/02/17 22:53 Dose: Not Given Magnesium Hydroxide (Milk Of Magnesia) 30 ml PO Q4H PRN PRN Reason: Constipation Ondansetron HCl (Zofran) 4 mg IV Q8H PRN PRN Reason: N/V unrelieved by Reglan Pantoprazole Sodium (Protonix) 40 mg PO QDAY [facility] Last Admin: 01/02/17 18:00 Dose: 40 mg Quetiapine Fumarate (Seroquel) 150 mg PO QHS [facility] Last Admin: 01/02/17 22:53 Dose: Not Given Sodium Chloride (Sodium Chloride Flush Syringe 10 Ml) 10 ml IV PRN PRN PRN Reason: LINE FLUSH Spironolactone (Aldactone) 100 mg PO QDAY [facility] Last Admin: 01/02/17 10:18 Dose: Not Given Review of Systems Constitutional: no fever, no chills Ears, nose, mouth and throat: no nasal congestion, no nasal discharge, no sinus pressure Cardiovascular: chest pain, no palpitations, no shortness of breath Respiratory: no cough, no congestion, no wheezing Gastrointestinal: no abdominal pain, no nausea, no vomiting, no diarrhea Genitourinary Female: no dysuria, no urgency Musculoskeletal: no neck stiffness, no neck pain, no myalgias Integumentary: no rash, no pruritis Neurological: no parathesias, no numbness, no tingling, no headaches Endocrine: no cold intolerance, no heat intolerance Hematologic/Lymphatic: no easy bruising, no easy bleeding Allergic/Immunologic: no urticaria, no wheezing Physical Examination Vital Signs Temp Pulse Resp BP Pulse Ox 98.2 F 69 18 137/88 99 01/01/17 08:45 01/01/17 08:45 01/01/17 08:45 01/01/17 08:45 01/01/17 08:45 General appearance: no acute distress HEENT: Positive: Normocephaly, Mucus Membranes Moist Neck: Positive: neck supple, trachea midline Cardiac: Positive: Reg Rate and Rhythm, S1/S2 Lungs: Positive: clear to auscultation Neuro: Positive: Grossly Intact Abdomen: Positive: Soft, Active Bowel Sounds Skin: Negative: Rash Extremities: Present: normal. Absent: edema Results 01/02/17 05:56 01/02/17 05:56 - Imaging and Cardiology EKG: image reviewed EKG interpretations - EKG Sinus rhythms and dysrhythmias: sinus rhythm Assessment and Plan Atypical chest pain-->resolved troponin negative x 4 D-dimer negative no acute EKG changes stress MPI 09/2016: no ischemia S/p right breast biopsy Hypertension stable continue coreg, norvasc Bipolar disorder Given resolution of atypical chest pain, negative cardiac enzymes and recent negative stress test, recommend continuing medical management. The patient may be discharged from a cardiac standpoint. The patient has been seen in conjunction with Dr. Archibald who agrees with the assessment and plan of care. Thank you Dr. Lang for allowing us to participate in the care of this patient.
--- NOTE | 2017-01-04 07:40 | Vascular Lab Report ---
LEFT UPPER EXTREMITY VENOUS DUPLEX: REASON FOR EXAM: Swelling of the left upper extremity COMMENTS ON THE LEFT: All arm veins visualized are freely compressible without evidence of internal echogenicity. The subclavian and internal jugular veins are free of thrombus. Flow is spontaneous and phasic throughout. COMMENTS ON THE RIGHT: The subclavian and internal jugular veins are free of thrombus. IMPRESSION: No evidence of acute or chronic deep venous thrombosis in the left upper extremity.
== END 2017-01-03 16:35 | disposition home or self-care (01) | DRG 392 ==
LOC: OR 08:11 → 2B-SURG 19:08
PROVIDERS: ADMIT Internal Medicine; ATTEND Surgery
PROC: 0HBT3ZX Excision of Right Breast, Percutaneous Approach, Diagnostic (ICD-10-PCS; principal; 2017-01-01)
DX: K21.9 Gastro-esophageal reflux disease without esophagitis (principal); R92.0 Mammographic microcalcification found on diagnostic imaging of breast; I10 Essential (primary) hypertension; E66.9 Obesity, unspecified; E11.9 Type 2 diabetes mellitus without complications; F31.9 Bipolar disorder, unspecified; Z88.2 Allergy status to sulfonamides; Z88.0 Allergy status to penicillin; Z68.34 Body mass index [BMI] 34.0-34.9, adult; Z79.899 Other long term (current) drug therapy
CPT/HCPCS: 36415; 76098; 80048; 80053; 82550; 82553; 82962; 84484; 85025; 85379; 88307; 88341; 88342; 93005; 93010; J1100; J1170; J2250; J2270; J2405; J2704; J3370; J7030; J7042

== ENCOUNTER 2019-05-08 07:00 | Outpatient (CLI) | payer OTHER ==
[~2019-05-08 07:00] MED LIST: IOPIDINE ONE; MYDRIACYL ONE; NEOFRIN ONE
[2019-05-08 08:30] LABS: Blood Urea Nitrogen 8 mg/dL (7-17)
--- NOTE | 2019-05-08 10:56 | Cat Scan Report ---
CTA HEAD WITH CONTRAST HISTORY: Cerebral aneurysm COMPARISON: MRA of the brain images not available TECHNIQUE: Routine CTA of the head performed. 3-D/MIP reformats postprocessed. All CT scans at this location are performed using CT dose reduction for ALARA by means of automated exposure control. CONTRAST: 100 ml of Omnipaque 350 FINDINGS: CTA Head: Intracranial vertebral arteries: Tubular segments of both vertebral arteries and origins of both PICA are normal. Basilar artery: Basilar artery and the basilar tip are normal. Posterior cerebral arteries: No significant abnormality. Intracranial internal carotid arteries: In the communicating segment of right internal carotid artery , approximately 3 mm sized aneurysm is seen at the origin of left posterior communicating artery. Thi s aneurysm is projecting inferiorly slightly posteriorly and laterally. Left internal carotid artery is normal from skull base to termination. Anterior cerebral arteries: No significant abnormality. Middle cerebral arteries: No significant abnormality. Dural venous sinuses:Not optimally opacified. No significant abnormality. Additional findings: Focal low density areas seen in the atrium of left lateral ventricle. This appea rs to be small amount of fatty density. 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
== END 2019-05-08 07:01 | disposition home or self-care (01) ==
LOC: CT 07:00
PROVIDERS: ATTEND Internal Medicine
DX: I67.1 Cerebral aneurysm, nonruptured (principal); I10 Essential (primary) hypertension; J45.909 Unspecified asthma, uncomplicated; E11.9 Type 2 diabetes mellitus without complications; Z90.710 Acquired absence of both cervix and uterus
CPT/HCPCS: 36415; 70496; 82565; 84520; Q9967

== ENCOUNTER 2019-10-20 13:35 | Outpatient (CLI) | payer OTHER ==
--- NOTE | 2019-10-20 14:26 | Mammography Report ---
DIGITAL SCREENING MAMMOGRAM WITH CAD, 10/20/2019 INDICATION: Routine screening mammography. History of benign biopsies. TECHNIQUE: Digital bilateral 2D mammography was obtained in the craniocaudal and mediolateral obliq ue projections. This examination was interpreted with the benefit of Computer-Aided Detection analysi s. COMPARISON: 11/13/2016 FINDINGS: Breast Density: The breasts are heterogeneously dense, which may obscure small masses. There is no evidence of dominant mass, suspicious calcifications or suspicious architectural distorti on in either breast. Benign right upper inner postsurgical scar. A few bilateral benign calcification s. IMPRESSION: No mammographic evidence of malignancy. Follow up recommendation: Routine yearly BI-RADS Category 2: Benign. A "normal" or negative report should not discourage follow up or biopsy of a clinically significant f inding. A written summary of these findings will be mailed to the patient. The patient will be entered into a mammography reporting system which will generate a reminder letter for the patient's next appointmen t at the appropriate interval. The [employer] recommends yearly mammograms starting at age 40 and continuing as l jean as a woman is in good health. Breast MRI is recommended for women with an approximate 20-25% or greater lifetime risk of breast cancer, including women with a strong family history of breast or ova molly cancer or who have been treated for Hodgkin's disease. Signer Name: Kareem Griffin MD Signed: 10/20/2019 2:22 PM Workstation Name: [id number]
== END 2019-10-20 13:36 | disposition home or self-care (01) ==
LOC: SPVWC 13:35
PROVIDERS: ATTEND Surgery
DX: Z12.31 Encounter for screening mammogram for malignant neoplasm of breast (principal); N64.89 Other specified disorders of breast
CPT/HCPCS: 77067

== ENCOUNTER 2021-02-02 12:43 | Outpatient (CLI) | payer OTHER ==
--- NOTE | 2021-02-02 15:20 | Mammography Report ---
DIGITAL SCREENING MAMMOGRAM WITH CAD, 02/02/2021 CLINICAL INFORMATION / INDICATION: Routine screening mammography. SCREENING MAMMO TECHNIQUE: Digital bilateral 2D mammography was obtained in the craniocaudal and mediolateral obliqu e projections. This examination was interpreted with the benefit of Computer-Aided Detection analysis . COMPARISON: 11/13/2016 through 10/30/2019. FINDINGS: Breast Density: The breasts are heterogeneously dense, which may obscure small masses. No dominant mass, suspicious calcifications, or new architectural distortion in either breast. Benign nodularity and calcifications bilaterally are again noted. Right breast scarring is stable. A left biopsy clip was also present previously. No new abnormality is seen. IMPRESSION: No mammographic evidence of malignancy. Follow up recommendation: Routine yearly BI-RADS Category 2: Benign. A "normal" or negative report should not discourage follow up or biopsy of a clinically significant f inding. A written summary of these findings will be mailed to the patient. The patient will be entered into a mammography reporting system which will generate a reminder letter for the patient's next appointmen t at the appropriate interval. The [employer] recommends yearly mammograms starting at age 40 and continuing as l jean as a woman is in good health. Breast MRI is recommended for women with an approximate 20-25% or greater lifetime risk of breast cancer, including women with a strong family history of breast or ova molly cancer or who have been treated for Hodgkin's disease. Signer Name: Paco Alvarez MD Signed: 02/02/2021 3:16 PM Workstation Name: [id number]
== END 2021-02-02 12:44 | disposition home or self-care (01) ==
LOC: SPVWC 12:43
PROVIDERS: ATTEND Surgery
DX: Z12.31 Encounter for screening mammogram for malignant neoplasm of breast (principal); N64.89 Other specified disorders of breast
CPT/HCPCS: 77067